=== PATIENT | female | born 1960 | race Caucasian/White ===

== ENCOUNTER 2020-07-12 10:18 | Outpatient (REF) | payer OTHER, SELFPAY ==
[2020-07-12 10:53] LABS: Anion Gap 14 (12-20); Blood Urea Nitrogen 32 mg/dL (9-16); Calcium 8.8 mg/dL (8.4-10.2); Carbon Dioxide 27 mmol/L (22-29); Chloride 100 mmol/L (96-108); Cholesterol 149 mg/dL; Estimated Glomerular Filt Rate 25; Glucose Random 303 mg/dL (60-115); HDL Cholesterol 31 mg/dL; LDL Cholesterol Calculated 66 mg/dl; Phosphorus 4.5 mg/dL (2.7-4.5); Potassium 4.8 mmol/L (3.3-5.1); Sodium 136 mmol/L (135-145); Triglycerides 260 mg/dL
[2020-07-12 11:16] LABS: T4 Thyroxine 8.3 ug/dL (4.5-12.0); Thyroid Stimulating Hormone 4.45 uIU/mL (0.32-4.0)
== END 2020-07-12 10:19 | disposition home or self-care (01) ==
LOC: HO.LNP 10:18
PROVIDERS: Visit Provider Internal Medicine
DX: I50.9 Heart failure, unspecified (principal); N17.9 Acute kidney failure, unspecified; E78.5 Hyperlipidemia, unspecified; E03.9 Hypothyroidism, unspecified
CPT/HCPCS: 80048; 80061; 84100; 84436; 84443